=== PATIENT | female | born 1960 | race Caucasian/White ===

== ENCOUNTER 2017-09-24 09:52 | Day surgery (SDC) | payer OTHER ==
[2017-09-24] MEDS ORDERED: PROPOFOL 60 ML (11:32)
[2017-09-24] MEDS ORDERED: LIDOCAINE 2% (SDV) 5 ML INJ (11:32)
== END 2017-09-24 16:55 | disposition home or self-care (01) ==
LOC: GIL 09:52
DX: K29.50 Unspecified chronic gastritis without bleeding (principal); K44.9 Diaphragmatic hernia without obstruction or gangrene; K21.9 Gastro-esophageal reflux disease without esophagitis; K64.4 Residual hemorrhoidal skin tags; K64.8 Other hemorrhoids; E78.5 Hyperlipidemia, unspecified; E11.9 Type 2 diabetes mellitus without complications; J44.9 Chronic obstructive pulmonary disease, unspecified; I10 Essential (primary) hypertension
CPT/HCPCS: 43239; 82962; 88305; 88312